=== PATIENT | female | born 1960 | race Caucasian/White ===

== ENCOUNTER → 2016-10-03 | Outpatient (CLI) | payer OTHER ==
[~2016-10-03] MED LIST: GADOBUTROL 10 ML VIAL IVP ONE
--- NOTE | 2016-10-03 14:56 | MR ---
MRI Lumbar Spine, Without and With Contrast History: Low back pain. History of prior surgery. ICD-10 code: M54.5. Comparison: May 2013. Technique: MRI is performed of the lumbar spine using a 1.5 [employer] MRI system. Sagittal and axial imag ing was obtained with standard imaging sequences. Images were obtained precontrast and postintravenou s contrast, 8.5 mL Gadavist. Findings: Postsurgical changes are seen of posterior fusion L4-L5 with paired pedicle screws and stab ilization rods. Interbody bone graft is seen at this level. There is mild anterolisthesis of L4 on L5 of 6 mm which is similar to comparison x-ray from September 2014. No new spondylolisthesis is visualiz ed. Conus is visualized at T12-L1 and is unremarkable. No evidence for abnormal enhancement of the co nus or cauda equina. L1-L2 level, unremarkable. L2-L3 level, unremarkable. L3-L4 level demonstrates a slight broad-based annular bulge. Mild facet and ligamentum flavum hypertr ophy is seen bilaterally causing mild bilateral neural foraminal narrowing slightly increased from th e prior examination. L4-L5 level demonstrates no significant encroachment. Partial facet resection on the right has improv ed the right spinal canal and right lateral recess narrowing. L5-S1 level demonstrates mild facet arthropathy causing minimal bilateral neural foraminal narrowing. Impressions 1. Postsurgical changes of fusion L4-L5 with interbody bone graft with improved spinal canal, lateral recess, and neural foraminal encroachment. 2. Mildly progressive degenerative disk and degenerative joint disease L4-L5 with mild bilateral neur al foraminal narrowing.
== END ==
LOC: FIMAGING 12:48
PROVIDERS: ATTEND Family Medicine
DX: M54.5 Low back pain (principal); Z98.1 Arthrodesis status
CPT/HCPCS: A9585

== ENCOUNTER 2016-10-07 20:35 | Emergency (ER) | payer OTHER ==
[2016-10-07] MEDS ORDERED: OXYCODONE/APAP 5/325 TAB PO ONE (20:42)
[2016-10-07 20:54] VITALS: TEMP 98.4
[2016-10-07] MEDS ORDERED: OXYCODONE/APAP 5/325MG PREPACK#4 BTL TAKEHOME ONE (21:31)
--- NOTE | 2016-10-07 21:34 | UCPHY ---
H & P Time Seen by Provider: 10/07/16 20:42 Patient Type: Established HPI/ROS: This patient complains of bleeding from right upper lip that started 1 hour prior to arrival she was able to stop the bleeding with direct pressure and came in for evaluation. She had a surgery today as an outpatient with Dr. Mccabe in [place] for a cyst on her right upper lip. She states that during the surgery she had a bleeder at the site of the surgical procedure however she left the office with hemostasis until the bleeding recurred. She also reports 7 /10 pain at the site of the incision and explains that she was just about to take a Tylenol 3 that she has for back pain for the lip pain when the bleeding started and she was unable to take any analgesics prior to arrival. She requests an analgesic now. ROS: No lightheadedness. No numbness. 5 point ROS is otherwise negative. 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 No other issues with bleeding. Smoking Status: Never smoked Physical Exam: Physical Exam Vital signs are normal. General: No acute distress HEENT: The patient has what appears to be a Vicryl suture and small surgical incision to the right upper lip on the mucosal surface with no active bleeding. This apparently stop bleeding shortly after arrival shortly before arrival. There is mild ecchymosis in the intraoral aspect of this wound. There is no surrounding erythema or other remarkable findings. The surgical incisions adjacent to the right upper canine incisor Eyes: Pupils equal and react to li Lungs: No respiratory distress. Cardiac: Brisk capillary refill is intact throughout. Pulses are 2+ and symmetric in the affected extremity. Skin: No rash or pallor. Neuro: Alert with no sensorimotor deficits appreciated. Constitutional: Initial Vital Signs Temperature (C) 36.9 C 10/07/16 20:45 Heart Rate 96 10/07/16 20:45 Respiratory Rate 20 10/07/16 20:45 Blood Pressure 160/110 H 10/07/16 20:45 O2 Sat (%) 95 10/07/16 20:45 O2 Delivery Mode Room Air Allergies/Adverse Reactions: hydrocodone [Hydrocodone] Allergy (Mild, Verified 10/07/16 20:51) Unknown latex [Latex] Allergy (Mild, Verified 10/07/16 20:51) Hives meperidine HCl [From Demerol] Allergy (Mild, Verified 10/07/16 20:51) U ciprofloxacin [From Cipro] Allergy (Verified 10/07/16 20:51) Hives furosemide [From Lasix] Allergy (Verified 10/07/16 20:51) Home Medications: Medication Instructions Recorded Aspirin [Aspirin 81mg (OTC)] 81 mg PO DAILY 08/25/13 Hydrochlorothiazide 25 mg PO DAILY 08/25/13 [Hydrochlorothiazide 25 MG (RX)] ZYRTEC 03/10/16 oxyCODONE/APAP 5/325 [Percocet 1 - 2 tab PO Q4-6PRN PRN #15 tab 10/07/16 5/325 (*)] MDM/Departure - MDM Medications Given: Discontinued Medications Oxycodone/Acetaminophen (Percocet 5/325) 1 tab PO EDNOW ONE Stop: 10/07/16 20:43 Last Admin: 10/07/16 20:50 Dose: 1 tab ED Course/Re-evaluation: Patient's pain is treated with a Percocet with partial relief. She had no recurrence of bleeding while here. I placed bone wax on her right upper canine incisor as I think that the tooth adjacent to the surgical incision may have contributed to the bleeding. Discussion: Patient with bleeding from surgical incision that stopped with direct pressure. No concerning findings on exam. - Depart Disposition: Home, Routine, Self-Care Clinical Impression: Postoperative hemorrhage from incision Condition: Good Additional Instructions: Diagnosis: Postoperative bleeding from incision 2. Lip pain Plan: Tylenol, Tylenol 3 or Percocet for pain control as needed. No driving, alcohol work on Tylenol 3 or Percocet. Take a stool softener while on Percocet prevent constipation. Ice to the lip if you have any further bleeding. Bone wax to the teeth adjacent to the incision for the next few days Return for any recurrent bleeding Prescriptions: oxyCODONE/APAP 5/325 [Percocet 5/325 (*)] 1 - 2 tab PO Q4-6PRN PRN #15 tab PRN Reason: Pain - PQRS PQRS Measurement: NA
[2016-10-07] MEDS ORDERED: ONDANSETRON 4MG PREPACK#2 BTL TAKEHOME ONE (21:39)
[2016-10-07] MEDS ORDERED: ONDANSETRON DISINTEGRATING 4 MG TAB PO ONE (21:46)
[2016-10-07 22:02] VITALS: BP 126/88; PULSE 85; RESP 16; O2SAT 92
== END 2016-10-07 22:00 | disposition home or self-care (01) ==
LOC: CED 20:35
DX: L76.22 Postprocedural hemorrhage of skin and subcutaneous tissue following other procedure (principal); R52 Pain, unspecified
CPT/HCPCS: 99214-PO; G0463-PO

== ENCOUNTER → 2016-10-27 | Outpatient (CLI) | payer OTHER ==
--- NOTE | 2016-10-27 16:35 | DX ---
Lumbar Spine, Two Views History: Back pain. Lumbar fusion. Follow-up. Comparison: September 2014. Findings: Postsurgical changes are seen of lumbar fusion, L4-L5, stable alignment and appearance. Mil d grade 1 anterior spondylolisthesis of L4 on L5. There is mild disk height narrowing posteriorly at L3-L4, which has worsened over the interval. No evidence for compression fracture. Impression: Stable postsurgical change of fusion, L4-L5. Progressive degenerative disk disease, L3-L4 .
== END ==
LOC: CIMAGING 13:49
PROVIDERS: ATTEND Physician Assistant Surgical
DX: M51.36 Other intervertebral disc degeneration, lumbar region (principal); Z98.1 Arthrodesis status
CPT/HCPCS: 72100-PO

== ENCOUNTER → 2017-02-25 | Outpatient (CLI) | payer OTHER | LOC: CIMAGING 07:54 | DX: Z12.31 Encounter for screening mammogram for malignant neoplasm of breast (principal) | CPT/HCPCS: G0202 ==

== ENCOUNTER → 2017-05-20 | Outpatient (CLI) | payer OTHER | LOC: FIMAGING 08:41 | PROVIDERS: ATTEND Family Medicine | DX: Z12.39 Encounter for other screening for malignant neoplasm of breast (principal); N64.4 Mastodynia ==

== ENCOUNTER 2017-05-22 15:03 | Emergency (ER) | payer OTHER ==
[2017-05-22 15:15] VITALS: BP 136/79; PULSE 81; RESP 18; TEMP 98.1; O2SAT 97
[2017-05-22] MEDS ORDERED: DEXAMETHASONE 2 MG TAB PO ONE (16:39)
--- NOTE | 2017-05-22 16:41 | EDPHY ---
H & P Time Seen by Provider: 05/22/17 16:23 HPI/ROS: CHIEF COMPLAINT: Sore throat and hoarse voice HISTORY OF PRESENT ILLNESS: Patient was doing well until she was bit on Friday on her right posterior lower leg by a bee or another stinging insect. It turned swollen and red and about 24 hours later she developed a sore throat. She started having subjective fever and chills and felt like she was having trouble breathing; not in her lungs, but all because she felt like her neck or throat was swollen. Yesterday her pulled out a stinger from the area in her leg and 20 minutes later she broke out in a cold sweat. She has also for the past 2 days had a little bit of a cough and yellow nasal discharge. Today she has a bit of a hoarse voice and feels like her throat is sore with some tightness. REVIEW OF SYSTEMS: No chest pain or wheezing. No nausea or vomiting. The redness on her leg is pretty much completely resolved. No trouble with speech or swallowing. PAST MEDICAL HISTORY: Includes hypertension, GERD, chronic back pain with spinal fusion, uterine ablation and cardiac ablation. Unilateral tonsillectomy. Social history: General Appearance: Alert and conversant, cooperative. No angioedema. Pharynx shows slightly asymmetric with left tonsil absent, with erythema but no exudate. No drooling or stridor. No trismus. Normal uvula. Normal TM's. No wheezing. Clear lungs. Speaks in full sentences, no extra work of breathing. Slightly hoarse. Right calf shows a small red 2 mm punctum but no surrounding redness erythema or urticaria. Normal range of motion of the neck. Not swollen. No meningeal signs. Some mild anterior lymphadenopathy. Emergency Department course/MDM: Patient presents with pharyngitis which more likely is related to viral and less likely I think would be related to her insect sting. She does not appear to have evidence of bacterial infection/strep, or retropharyngeal abscess or epiglottitis. Symptomatic treatment discussed and I think the most reasonable thing is a short course of oral dexamethasone. I will prescribe her an EpiPen because of the question of severe allergic reaction from insect sting. She is advised to follow up with her primary care physician for insect allergy testing. I do not think she has evidence of anaphylaxis or imminent airway compromise at this time. Smoking Status: Never smoked Constitutional: Initial Vital Signs Temperature (C) 36.7 C 05/22/17 15:11 Heart Rate 81 05/22/17 15:11 Respiratory Rate 18 05/22/17 15:11 Blood Pressure 136/79 H 05/22/17 15:11 O2 Sat (%) 97 05/22/17 15:11 O2 Delivery Mode Room Air Allergies/Adverse Reactions: hydrocodone [Hydrocodone] Allergy (Mild, Verified 10/07/16 20:51) Unknown latex [Latex] Allergy (Mild, Verified 10/07/16 20:51) Hives meperidine HCl [From Demerol] Allergy (Mild, Verified 10/07/16 20:51) U ciprofloxacin [From Cipro] Allergy (Verified 10/07/16 20:51) Hives furosemide [From Lasix] Allergy (Verified 10/07/16 20:51) Home Medications: Medication Instructions Recorded Aspirin [Aspirin 81mg (OTC)] 81 mg PO DAILY 08/25/13 Hydrochlorothiazide 25 mg PO DAILY 08/25/13 [Hydrochlorothiazide 25 MG (RX)] ZYRTEC 03/10/16 Bystolic 5 mg (*) 05/22/17 Dexamethasone 4 mg PO DAILY #3 tablet 05/22/17 EPINEPHRINE [EPIPEN] 0.3 mg IM ONCE #1 syr 05/22/17 MDM/Departure - [facility] Medications Given: Discontinued Medications Dexamethasone (Decadron) 8 mg PO EDNOW ONE Stop: 05/22/17 17:01 Last Admin: 05/22/17 16:54 Dose: 8 mg - Depart Disposition: Home, Routine, Self-Care Clinical Impression: Pharyngitis Qualifiers: Pharyngitis/tonsillitis etiology: unspecified etiology Qualified Code(s): J02.9 - Acute pharyngitis, unspecified Condition: Good Instructions: Pharyngitis (ED) Additional Instructions: Oral dexamethasone in the emergency department. Please return for fever or lip tongue or throat swelling or any trouble breathing. Follow-up with your doctor for consideration of testing for allergy to insect. Continue taking Claritin at least for the next 4 days. Prescriptions: Dexamethasone 4 mg PO DAILY #3 tablet EPINEPHRINE [EPIPEN] 0.3 mg IM ONCE #1 syr Referrals: Dominique Ramos MD [Primary Care Provider] - 5-7 days, call for appt.
[2017-05-22] MEDS ORDERED: DEXAMETHASONE 4 MG TAB PO ONE (17:00)
== END 2017-05-22 17:17 | disposition home or self-care (01) ==
DX: J02.9 Acute pharyngitis, unspecified (principal); I10 Essential (primary) hypertension; Z79.82 Long term (current) use of aspirin; Z91.040 Latex allergy status

== ENCOUNTER 2017-07-15 19:21 | Emergency (ER) | payer OTHER ==
--- NOTE | 2017-07-15 20:03 | EDPHY ---
H & P Stated Complaint: SAT- GOT UP WRONG, LOW BACK PAIN, WORSE TODAY AFTER PT, BACK OF RIGHT LEG HPI/ROS: CHIEF COMPLAINT: Back pain HISTORY OF PRESENT ILLNESS: The patient is a 56 y/o female arriving with her complaining of chronic lumbar back pain for the last several months that worsened acutely in the last couple days. She had an L4-L5 fusion and has degenerative disease above and below the fusion. A couple days ago she was sitting on the floor cleaning up glass and as she tried to stand up developed a twinge in her back. Within a couple hours she was crying from the pain. She went to her massage therapist this morning to treat her pain. By about 10:00am, she developed the sensation of back spasm. When she sat on the floor to change out her shoes she had severe back pain with right leg radiculopathy into her gluteal region to the level of her knee and couldn't get back up off the floor. Her coworkers helped her into a chair and she treated herself with ice and 600mg ibuprofen and another 600mg 6 hours later. She eventually got in touch with her doctor and was referred to the ED. She has some associated right foot dragging, which she has experienced sporadically in the past. She feels the urge to have a bowel movement, but has not been able to have a bowel movement though she feels she can still bear down normally. She denies urinary symptoms. Her pain is still present and aggravated by movement and certain positions including sitting. She also notes left big toe paresthesias, which she has had for some time. REVIEW OF SYSTEMS: A ten point review of systems was performed and is negative with the exception of the items mentioned in the HPI. Past medical history: degenerative disc disease with chronic back pain - 300mg gabapentin, injections; SVT - 25mg Bystolic; hypertension Past surgical history: L4-L5 fusion for disc herniation by Dr. Ibrahim; cardiac ablation 2005 Family history: noncontributory Social history: at bedside. Nonsmoker. Occasional alcohol use. 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. Lives in [place]. PCP: Dr. Ramos. General Appearance: Alert. Vital signs reviewed. Blood pressure 139/77. Eyes: Pupils equal and round, no conjunctival injection, no discharge. Anicteric. ENT, Mouth: Mucous membranes are moist, no oropharyngeal erythema or edema. Neck: No lymphadenopathy, supple. Respiratory: Lungs are clear to auscultation; no wheezes, rales, or rhonchi. Cardiovascular: Regular rate and rhythm; no murmur, rub, or gallop. Gastrointestinal: Abdomen is soft and nontender, no masses or organomegaly, bowel sounds normal. Rectal: Skin: Warm and dry, no rashes on exposed skin, normal color. Back: Nontender to palpation over the thoracolumbar spine. No CVAT. Well- healed midline incision. Rectal: Normal rectal tone and normal perirectal sensation. Extremities: No lower extremity edema, no calf tenderness or swelling. Neurological: Alert and oriented. Moving all four extremities easily and equally.. Strength is 5 over 5 bilaterally with testing of all major motor groups of both lower extremities. Sensation is intact to light touch over all 4 extremities. Deep tendon reflexes are 2+ in the left knee and ankle and 1+ in the right knee and ankle. Gait deferred. Psychiatric: Normal affect. - Personal History LMP (Females 10-55): Post Menopausal Current Tetanus/Diphtheria Vaccine: Yes Tetanus Vaccine Date: 2012 - Medical/Surgical History Hx Asthma: No Hx Chronic Respiratory Disease: No Hx Diabetes: No Hx Cardiac Disease: Yes Hx Renal Disease: No Hx Cirrhosis: No Hx Alcoholism: No Hx HIV/AIDS: No Hx Splenectomy or Spleen Trauma: No Other PMH: chronic back pain. HTN , GERD, spinal fusion 2012 L4-5, UTERINE ABLATION, Cardiac ablation r/t svt 2005,CARDIAC ARREST AT 20 YR OLD WITH SURG - Social History Smoking Status: Never smoked Constitutional: Initial Vital Signs Temperature (C) 36.7 C 07/15/17 19:24 Heart Rate 63 07/15/17 19:24 Respiratory Rate 18 07/15/17 19:24 Blood Pressure 139/77 H 07/15/17 19:24 O2 Sat (%) 94 07/15/17 19:24 O2 Delivery Mode Room Air Allergies/Adverse Reactions: hydrocodone [Hydrocodone] Allergy (Mild, Verified 07/15/17 19:32) Unknown latex [Latex] Allergy (Mild, Verified 07/15/17 19:32) Hives meperidine HCl [From Demerol] Allergy (Mild, Verified 07/15/17 19:32) U ciprofloxacin [From Cipro] Allergy (Verified 07/15/17 19:32) Hives furosemide [From Lasix] Allergy (Verified 07/15/17 19:32) Home Medications: Medication Instructions Recorded Aspirin 81mg (*) 07/15/17 Azelastine 07/15/17 CYCLOBENZAPRINE HCL [Flexeril] 5 mg PO TIDPRN PRN #9 tab 07/15/17 Clobetasol Emollient 0.05% Crm 07/15/17 GABAPENTIN 07/15/17 Nebivolol HCl [Bystolic] 2.5 mg PO 07/15/17 Ranitidine HCl 07/15/17 oxyCODONE/APAP 5/325 [Percocet 1 - 2 tab PO Q4H PRN #10 tab 07/15/17 5/325 (RX)] Medical Decision Making - Diagnostics Imaging: I viewed and interpreted images myself ED Course/Re-evaluation: This is a 56 y/o female with a history of lumbar fusion and degenerative spinal disease who presents with acutely worsening right lumbar radiculopathy. Her neurologic exam is normal apart from mildly diminished patellar and ankle reflexes in her right leg. Although she reports intermittent foot drop symptoms I do not detect any weakness on exam. Plan for lumbar x-ray to assess her hardware and pain management. IV established. 16.8mg IV Ketamine and 8mg IV Decadron administered. Patient re-evaluated at 9:30 p.m.. She is resting comfortably in the bed. Initially she had some anxiety with a ketamine but this has resolved. She says that her right leg pain is gone. X-ray shows no change in her pedicle screws and fixation device. No acute fracture. She feels well enough to return home at this point in time. I am recommending follow up with her neurosurgeon and her primary care physician. She will continue with anti-inflammatory medication. She is given a prescription for Flexeril for muscle relaxation and also for small quantity, 10, Percocet to use on an as needed basis. We reviewed the danger signs that should prompt her to be re-evaluated immediately. Differential Diagnosis: Back pain including but not limited to muscular pain, herniated disc, spine fracture, intra-abdominal causes and urinary tract infection. - Data Points Medications Given: Discontinued Medications Dexamethasone (Decadron Injection) 8 mg IVP EDNOW ONE Stop: 07/15/17 20:35 Last Admin: 10/17/17 21:17 Dose: 8 mg Diazepam (Valium 5 Mg Prepack#4) 1 btl TAKEHOME EDNOW ONE Stop: 07/15/17 22:32 Last Admin: 07/15/17 22:39 Dose: 1 btl Ketamine HCl (Ketamine) 16.8 mg 0.2 mg/kg (16.8 mg) IVP EDNOW ONE Stop: 07/15/17 20:35 Last Admin: 07/15/17 21:18 Dose: 16.8 mg Oxycodone/Acetaminophen (Percocet 5/325) 1 tab PO EDNOW ONE Stop: 07/15/17 22:01 Last Admin: 07/15/17 22:17 Dose: 1 tab Oxycodone/Acetaminophen (Percocet 5/325mg Prepack#4) 1 btl TAKEHOME EDNOW ONE Stop: 07/15/17 22:19 Last Admin: 07/15/17 22:38 Dose: 1 btl Departure - Departure Disposition: Home, Routine, Self-Care Clinical Impression: Lumbar radiculopathy Condition: Good Instructions: Oxycodone/Acetaminophen (By mouth), Diazepam (By mouth), Lumbar Radiculopathy (ED) Additional Instructions: 1. Take 600mg ibuprofen every 6-8 hours as needed for pain, not to exceed one week. Use the percocet if needed for more severe pain. You can also try the Flexeril for muscle spasm. 2. Follow up with Dr. Ibrahim's office first thing tomorrow morning. 3. Return to the ED for weakness or numbness in your leg or genital region, incontinence, fever, or other worsening of condition. Referrals: Dominique Ramos MD [Primary Care Provider] - As per Instructions Javier Ibrahim MD [Medical Doctor] - As per Instructions Stand Alone Forms: Narcotic Guidelines, Work Excuse Prescriptions: CYCLOBENZAPRINE HCL [Flexeril] 5 mg PO TIDPRN PRN #9 tab PRN Reason: muscle spasm oxyCODONE/APAP 5/325 [Percocet 5/325 (RX)] 1 - 2 tab PO Q4H PRN #10 tab PRN Reason: Pain, Severe Report Scribed for: Ashley Mena Report Scribed by: Sury Martínez Date of Report: 07/15/17 Time of Report: 20:22 Physician Review and Approval Statement: 07/15/17 20:03 Portions of this note were transcribed by the medical office asst. I, Dr. Ashley Mena, personally performed the history, physical exam, and medical decision- making; and confirmed the accuracy of the information in the transcribed note.
[2017-07-15] MEDS ORDERED: DEXAMETHASONE 4 MG/ML VIAL IVP ONE (20:34)
[2017-07-15] MEDS ORDERED: DIAZEPAM 10 MG/2 ML SYR IVP ONE (20:34)
[2017-07-15] MEDS ORDERED: KETAMINE 100 MG/10 ML SYR IVP ONE (20:34)
[2017-07-15] MEDS ORDERED: OXYCODONE/APAP 5/325 TAB PO ONE (22:00)
[2017-07-15] MEDS ORDERED: OXYCODONE/APAP 5/325MG PREPACK#4 BTL TAKEHOME ONE (22:18)
[2017-07-15] MEDS ORDERED: DIAZEPAM 5 MG PREPACK#4 BTL TAKEHOME ONE (22:31)
[2017-07-15 22:46] VITALS: TEMP 97.9; O2SAT 92
[2017-07-15 22:47] VITALS: BP 125/67
[2017-07-15 22:50] VITALS: PULSE 58; RESP 16
== END 2017-07-15 22:50 | disposition home or self-care (01) ==
DX: M54.16 Radiculopathy, lumbar region (principal); I10 Essential (primary) hypertension; Z79.82 Long term (current) use of aspirin; Z91.040 Latex allergy status
CPT/HCPCS: 96374; J1100

== ENCOUNTER → 2017-08-06 | Outpatient (CLI) | payer OTHER | LOC: FIMAGING 07:57 | DX: M50.31 Other cervical disc degeneration, high cervical region (principal); M48.02 Spinal stenosis, cervical region; M46.92 Unspecified inflammatory spondylopathy, cervical region; M46.93 Unspecified inflammatory spondylopathy, cervicothoracic region; M48.04 Spinal stenosis, thoracic region ==

== ENCOUNTER 2017-10-21 10:20 | Emergency (ER) | payer OTHER ==
[2017-10-21] MEDS ORDERED: HYDROmorphONE/DILAUDID 1 MG/ML INJ IVP ONE (10:31)
[2017-10-21] MEDS ORDERED: ONDANSETRON 4 MG/2 ML VIAL ONE (11:18)
[2017-10-21] MEDS ORDERED: ONDANSETRON 4 MG/2 ML VIAL IVP ONE (11:19)
[2017-10-21 11:24] VITALS: RESP 18
[2017-10-21] MEDS ORDERED: ONDANSETRON DISINTEGRATING 4 MG TAB ONE (13:45)
[2017-10-21] MEDS ORDERED: ONDANSETRON DISINTEGRATING 4 MG TAB PO ONE (13:46)
--- NOTE | 2017-10-21 13:46 | EDPHY ---
H & P Time Seen by Provider: 10/21/17 10:42 HPI/ROS: CHIEF COMPLAINT: Fall, left ankle injury, back pain HISTORY OF PRESENT ILLNESS: 56-year-old female presents to the emergency department by ambulance complaining of pain in her left ankle and her back. The patient states that she slipped on some ice and her ankle turned and she fell landing on her buttock. She has a history of chronic neck and back pain. She denies any presyncopal symptoms prior to her fall. Denies chest pain or difficulty breathing. Denies abdominal pain. Denies any urinary complaints. Denies injury to her upper extremities or her right lower extremity. REVIEW OF SYSTEMS: Constitutional: No fever, no chills. Eyes: No double or blurry vision. ENT: No sore throat. Respiratory: No cough, no shortness of breath. Cardiac: No chest pain. Gastrointestinal: No abdominal pain, vomiting or diarrhea. Genitourinary: No dysuria. Musculoskeletal: Back pain as above. No neck pain. Skin: No rashes. Neurological: No headache. Social History: and lives in [place] Smoking Status: Never smoked Physical Exam: General Appearance: Alert, no distress. Cervical collar in place. No visible signs of trauma to her head. Tearful. Eyes: Pupils equal and round. Extraocular motions are all intact. ENT: Mouth: Mucous membranes moist. No dental injury or malocclusion. Respiratory: No wheezing, rhonchi, or rales, lungs are clear to auscultation. Cardiovascular: Regular rate and rhythm. Gastrointestinal: Abdomen is soft and nontender, no masses, no rebound or guarding, bowel sounds normal. Neurological: Alert and oriented x 3, cranial nerves II through XII grossly intact Skin: Warm and dry, no rashes. Musculoskeletal: Diffusely tender to palpate along cervical spine. Nontender to palpate along thoracic or lumbar spine. Extremities: Tenderness with palpation lateral aspect of her left ankle. She is able to dorsiflex and plantar flex her left ankle. Nontender to palpate the medial aspect. Difficult to assess ligament stability given her pain. Full range of motion of the right lower extremity and her upper extremities bilaterally. Gait was not tested. Psychiatric: Patient is oriented X 3, there is no agitation. Constitutional: Initial Vital Signs Temperature (C) 36.6 C 10/21/17 10:24 Heart Rate 71 10/21/17 10:24 Respiratory Rate 16 10/21/17 10:24 Blood Pressure 143/86 H 10/21/17 10:24 O2 Sat (%) 90 L 10/21/17 10:24 O2 Delivery Mode Room Air O2 (L/minute) 2 Allergies/Adverse Reactions: hydrocodone [Hydrocodone] Allergy (Mild, Verified 07/15/17 19:32) Unknown latex [Latex] Allergy (Mild, Verified 07/15/17 19:32) Hives meperidine HCl [From Demerol] Allergy (Mild, Verified 07/15/17 19:32) U ciprofloxacin [From Cipro] Allergy (Verified 07/15/17 19:32) Hives furosemide [From Lasix] Allergy (Verified 07/15/17 19:32) Home Medications: Medication Instructions Recorded Aspirin 81mg (*) 07/15/17 Azelastine 07/15/17 CYCLOBENZAPRINE HCL [Flexeril] 5 mg PO TIDPRN PRN #9 tab 07/15/17 Clobetasol Emollient 0.05% Crm 07/15/17 GABAPENTIN 07/15/17 Nebivolol HCl [Bystolic] 2.5 mg PO 07/15/17 Ranitidine HCl 07/15/17 oxyCODONE/APAP 5/325 [Percocet 1 - 2 tab PO Q4H PRN #10 tab 07/15/17 5/325 (RX)] Medical Decision Making - Diagnostics Imaging Results: Imaging Impressions Ankle X-Ray 10/21/17 10:33 Impression: Acute minimally displaced distal fibular fracture. Cervical Spine CT 10/21/17 11:45 Impression: 1. No acute abnormality seen about the cervical spine. 2. Degenerative disk disease most prominent at C5-C6 and at C6-C7. Findings discussed with Radha Georges PA-C at 12:30 hour, 10/21/2017. Lumbar Spine X-Ray 10/21/17 11:45 Impression: 1. Negative. No acute lumbar spine fracture. 2. Well-seated L4-L5 posterior fusion construct unchanged in alignment since June 2017. Thoracic Spine X-Ray 10/21/17 11:45 Impression: Negative. No acute thoracic spine fracture. Imaging: Discussed imaging studies w/ fisher scallop Radiologist, I viewed and interpreted images myself Procedures: Patient was placed in a Reeves boot and examined post application in good placement with normal [employer]IST. ED Course/Re-evaluation: A 56-year-old female presents to the emergency department after mechanical fall. X-rays reveal nondisplaced distal fibular fracture which is intra- articular. She was placed in a Reeves boot and given crutches and will be nonweightbearing until she follows up with orthopedic surgery. The patient is also having midline cervical spine tenderness. She was kept in a cervical collar and CT imaging reveals did degenerative changes without fracture. X-rays of the thoracic and lumbar spine revealed no acute fractures with hardware in place. A the patient will be discharged home. The patient received IV fentanyl by EMS and then received IV Dilaudid in the emergency department by the nurse. The patient was starting to feel nauseous upon discharge. She was given Zofran 4 mg ODT. The patient is feeling better and can comfortably maneuver on crutches, she will be discharged home with her who is at bedside. 3:30 p.m.: Patient is feeling much better. She will be discharged home with her . Differential Diagnosis: Including but not limited to fracture, dislocation, contusion, sprain Back pain including but not limited to muscular pain, herniated disc, spine fracture, intra-abdominal causes and urinary tract infection. - Data Points Medications Given: Discontinued Medications Hydromorphone HCl (Dilaudid) 1 mg IVP EDNOW ONE Stop: 10/21/17 10:32 Last Admin: 10/21/17 10:37 Dose: 1 mg Ibuprofen (Motrin) 600 mg PO EDNOW ONE Stop: 10/21/17 14:49 Last Admin: 10/21/17 14:49 Dose: 600 mg Ondansetron HCl (Zofran) 4 mg IVP EDNOW ONE Stop: 10/21/17 11:20 Last Admin: 10/21/17 11:20 Dose: 4 mg Ondansetron HCl (Zofran Odt) 4 mg PO EDNOW ONE Stop: 10/21/17 13:47 Last Admin: 10/21/17 13:47 Dose: 4 mg Departure - Departure Disposition: Home, Routine, Self-Care Clinical Impression: Closed left ankle fracture Qualifiers: Encounter type: initial encounter Qualified Code(s): S82.892A - Other fracture of left lower leg, initial encounter for closed fracture Cervical strain, acute Qualifiers: Encounter type: initial encounter Qualified Code(s): S16.1XXA - Strain of muscle, fascia and tendon at neck level, initial encounter Low back strain Qualifiers: Encounter type: initial encounter Qualified Code(s): S39.012A - Strain of muscle, fascia and tendon of lower back, initial encounter Condition: Good Instructions: Cervical Strain (ED), Ankle Fracture (ED), Low Back Strain (ED) Additional Instructions: Leandro orantes for comfort and support. Do NOT weightbear on your ankle until seen by orthopedic surgeon later this week. Use crutches. Ibuprofen 600 mg every 8 hr as needed for pain. Referrals: Roger Rivera MD [Medical Doctor] - As per Instructions Anthony Correa MD [Medical Doctor] - 2-3 days without fail (Orthopedic surgeon on-call)
[2017-10-21 13:56] VITALS: O2SAT 94
[2017-10-21] MEDS ORDERED: IBUPROFEN 600 MG TAB PO ONE ×2 (14:47→14:48)
[2017-10-21 15:30] VITALS: BP 106/56; PULSE 56; TEMP 98.1
== END 2017-10-21 15:30 | disposition home or self-care (01) ==
LOC: EDUNIT#
DX: S82.832A Other fracture of upper and lower end of left fibula, initial encounter for closed fracture (principal); S16.1XXA Strain of muscle, fascia and tendon at neck level, initial encounter; S39.012A Strain of muscle, fascia and tendon of lower back, initial encounter; Z79.82 Long term (current) use of aspirin; Z91.040 Latex allergy status; W01.0XXA Fall on same level from slipping, tripping and stumbling without subsequent striking against object, initial encounter
CPT/HCPCS: 96374; J1170; J2405; L4386

== ENCOUNTER → 2018-03-25 | Outpatient (CLI) | payer OTHER | LOC: FIMAGING 13:56 | PROVIDERS: ATTEND Internal Medicine Hematology & Oncology | DX: N63.20 Unspecified lump in the left breast, unspecified quadrant (principal) ==

== ENCOUNTER → 2018-10-28 | Outpatient (CLI) | payer BC | LOC: FIMAGING 08:30 | PROVIDERS: ATTEND Family Medicine | DX: R10.11 Right upper quadrant pain (principal) ==

== ENCOUNTER 2019-02-13 11:15 | Emergency (ER) | payer BC ==
[2019-02-13] MEDS ORDERED: DEXAMETHASONE 4 MG TAB PO ONE (11:58)
--- NOTE | 2019-02-13 12:32 | EDPHY ---
H & P Time Seen by Provider: 02/13/19 11:36 HPI/ROS: CHIEF COMPLAINT: Cough, sore throat, something stuck in my throat, hoarse voice HISTORY OF PRESENT ILLNESS: 58-year-old female presents with reports that 3 days ago she thought she was being bothered by allergies. She had a runny nose and some congestion. She began taking her Claritin-D. She has also had a cough. Reports feeling kind of tired and weak yesterday. Last night she woke in the middle of the night with feeling that there was something stuck in her throat making it hard to swallow. She started to get a little panicky and got up and walked around. She did note that she had some wheezy respirations which have now cleared. No fever. Mild shortness of breath. Continues to have a hoarse voice. No palpitations, vomiting, diarrhea. No dysarthria or word-finding difficulty. Some chest tightness which she thinks is because of the postnasal drip. REVIEW OF SYSTEMS: A comprehensive 10 system review of systems was reviewed and is otherwise negative aside from elements mentioned in the history of present illness and medical decision making. PAST MEDICAL HISTORY: SVT with ablation, hypertension, uterine ablation. No asthma, COPD, or pulmonary history. SOCIAL HISTORY: Nonsmoker. VITAL SIGNS Reviewed by me. GENERAL: Well-developed, well-nourished, has a hoarse voice and sounds congested. Occasional cough. HEENT: Atraumatic. Eyes: No icterus, no injection. YU, no nystagmus. Mouth: moist mucous membranes. Mild erythema at the throat. Mucous is present in back of throat. No tonsillar enlargement. Neck: supple with no adenopathy. No meningismus. No stridor. LUNGS: Clear to auscultation bilaterally, no wheezes, rhonchi or rales. CARDIAC: Regular rate and rhythm, no rubs, murmurs or gallops. ABDOMEN: Soft, nontender, nondistended, bowel sounds normal. BACK: No CVA tenderness. EXTREMITIES: No trauma. No edema. Range of motion is normal throughout. NEURO: Alert and oriented, grossly nonfocal. SKIN: Warm and dry, no rash. PSYCHIATRIC: Normal mentation, no agitation. Smoking Status: Never smoked Constitutional: Initial Vital Signs Temperature (C) 37.3 C 02/13/19 11:30 Heart Rate 88 02/13/19 11:30 Respiratory Rate 18 02/13/19 11:30 Blood Pressure 129/92 H 02/13/19 11:30 O2 Sat (%) 92 02/13/19 11:30 O2 Delivery Mode Room Air Allergies/Adverse Reactions: hydrocodone [Hydrocodone] Allergy (Mild, Verified 02/13/19 11:29) Unknown latex [Latex] Allergy (Mild, Verified 02/13/19 11:29) Hives meperidine HCl [From Demerol] Allergy (Mild, Verified 02/13/19 11:29) U ciprofloxacin [From Cipro] Allergy (Verified 02/13/19 11:29) Hives furosemide [From Lasix] Allergy (Verified 02/13/19 11:29) Home Medications: Medication Instructions Recorded Aspirin 81mg (*) 07/15/17 Nebivolol HCl [Bystolic] 2.5 mg PO 07/15/17 Hydrochlorothiazide 02/13/19 Pantoprazole Sodium 02/13/19 Medical Decision Making - Diagnostics Imaging Results: Imaging Impressions Chest X-Ray 02/13/19 11:58 Impression: Clear lungs. Minimal unchanged airways disease. Imaging: I viewed and interpreted images myself ED Course/Re-evaluation: 58-year-old female with environmental allergies now possibly compounded by a laryngeal tracheitis. Chest x-ray demonstrates no pneumonia. Patient received Decadron 8 mg for laryngeal tracheitis treatment. Please see the discharge instructions. Differential Diagnosis: Differential diagnoses for the patient's symptom complex was considered including but not limited to seasonal allergies, postnasal drip, lower angio tracheitis, foreign body, bronchitis. - Data Points Medications Given: Discontinued Medications Dexamethasone (Decadron) 8 mg PO EDNOW ONE Stop: 02/13/19 11:59 Last Admin: 02/13/19 12:09 Dose: 8 mg Departure - Departure Disposition: Home, Routine, Self-Care Clinical Impression: Laryngotracheitis Condition: Good Instructions: Laryngitis (ED), Upper Respiratory Infection (ED) Additional Instructions: I think your symptoms may be a combination of both seasonal allergies as well as a upper respiratory infection. Mainstay of therapy will be to drink plenty of fluids, control your symptoms with [id number] medications, and get plenty of rest. For sore throat pain I recommend Tylenol and ibuprofen. Adult Pain & Fever Control: We recommend Acetaminophen (Tylenol) and Ibuprofen (Motrin, Advil) for pain and fever control. When fever is high or pain severe, both drugs can be used at the same time, but at different intervals. Please note the time differences. Your dose is: Acetaminophen [650-1000]mg every 4 to 6 hours Ibuprofen [600]mg every [8] hours with food. For significant runny nose or postnasal drip, continue taking your antihistamine. If you are congested, take a decongestant. Afrin nasal spray will help significant sinus congestion. Do not use this for more than 3 days in a row. Flonase nasal spray is also helpful for nasal congestion. The decadron which you were given will help with any swelling around the vocal cords. Consider taking Mucinex to help thin secretions. Return to the emergency department or seek care urgently if you develop a fever , worsening of her symptoms despite the above measures, cough productive of sputum, or other concerns. Referrals: Dominique Ramos MD [Primary Care Provider] - As per Instructions
[2019-02-13 16:00] VITALS: BP 114/88
== END 2019-02-13 12:46 | disposition home or self-care (01) ==
LOC: CED 11:15
DX: J04.2 Acute laryngotracheitis (principal)
CPT/HCPCS: 71046-PO; 99283-ER